=== PATIENT | male | born 1965 | race Caucasian/White ===

== ENCOUNTER 2021-06-04 19:52 | Inpatient (IN) | payer OTHER ==
--- OUTSIDE RECORDS SUMMARY | 2021-06-04 19:23 | XMS REPORT | Continuity of Care Document ---
:1965 Author Organization [facility] t Address [address] [place] [address] Care Team Providers Name Role Phone Danijazzmine_Radu Attending Clinician Unavailable Ckel_T Admitting Clinician Unavailable Payers Payer Name Policy Type Policy Number Effective Date Expiration Date [facility] [id number] Problems Condition Condition Condition Status Onset Resolution Last Treating Co mments Source Name Details Category Date Date Treatment Clinician Date Disorder Disorder Problem Active [facility] of of 9-16 Family endocrine Endocrine 00:00: Prac tic system System 00 e Paresthesi Paresthesi Problem Active [facility] a a 9-15 Family 00:00: Practic 00 e Type 2 Type 2 Problem Active [facility] diabetes Diabetes 915 Family mellitus Mellitus 00:00: Practi c without without 00 e complicati Complicati on on Hypogonadi Hypogonadi Problem Active [facility] sm sm 9-15 Family 00:00: Practic 00 e Hyperlipid Hyperlipid Problem Active [facility] emia emia 9-15 Family 00:00: Practic 00 e Tingling Tingling Problem Active [facility] of skin of Skin 3-12 Family 00:00: Practic 00 e Clinical Clinical Problem Active [facility] finding Finding 3-12 Family 00:00: Practic 00 e Ingrowing Ingrowing Problem Active Susy cash nail Nail 3-12 Family 00:00: Practic 00 e Clinical Clinical Problem Active [facility] finding Finding 8-01 Family 00:00: Practic 00 e Elevated Elevated Problem Active [facility] blood-pres Blood-pres 4-12 Fa leticia sure sure 00:00: Practic reading Reading 00 e without without diagnosis Diagnosis of of hypertensi Hypertensi on on General General Problem Active [facility] finding of Finding of 4-12 Fa leticia observatio Observatio 00:00: Pr actic n of n of 00 e patient Patient Polyp of Polyp of Problem Active [facility] colon Colon Family Practic e Allergies, Adverse Reactions, Alerts This patient has no known allergies or adverse reactions. Social History Smoking Status Start Date Stop Date Source Never Smoker [facility] Medications Ordered Filled Start Stop Current Ordering Indication Dosage Frequency Signature Comments Components Source Medication Medication Date Date Medication? Clinician (SIG) Name Name Barry CerdaStyle No FreeStyle [facility] Lancets Lancets Lancets Family insert insert insert Practic twice daily twice daily twice e daily FreeStyle FreeStyle No 1strip( [facility] Stri[facility] s) Lite F amily Take 1 Take 1 Strips Practic strip twice strip twice Take 1 e a day by a day by strip miscell. miscell. twice a route. route. day by miscell. route. gatifloxaci gatifloxaci No gatifloxac [facility] n 0.5 % eye n 0.5 % eye in 0.5 % Family drops drops eye drops Practic e gemfibrozil gemfibrozil No gemfibrozi [facility] 600 mg 600 mg l 600 mg Family tablet Take tablet Take tablet Practic 1 tablet 1 tablet Take 1 e twice a day twice a day tablet by oral by oral twice a route. route. day by oral route. lisinopril [facility] 10 mg 10 mg 10 mg Family tablet Take tablet Take tablet Practic 1 tablet 1 tablet Take 1 e every day every day tablet by oral by oral every day route. route. by oral route. lisinopril lisinopril [facility] 20 mg 20 mg 20 mg Family tablet tablet tablet Practic e methylpredn methylpredn No methylpred [facility] isolone 4 isolone 4 nisolone 4 Family mg tablets mg tablets mg tablets Practic in a dose in a dose in a dose e pack pack pack pioglitazon pioglitazon No 1 Q1D pioglitazo [facility] 15 mg e 15 mg ne 15 mg Famil y tablet Take tablet Take tablet Practic 1 tablet 1 tablet Take 1 e every day every day tablet by oral by oral every day route for route for by oral 90 days. 90 days. route for 90 days. prednisolon prednisolon No prednisolo [facility] e acetate 1 e acetate 1 ne acetate Family % eye % eye 1 % eye Practic drops,suspe drops,suspe drops,susp e nsion nsion ension rosuvastati rosuvastati No rosuvastat [facility] n 10 mg n 10 mg in 10 mg Famil y tablet tablet tablet Practic e Synjardy XR Synjardy XR No 2 Q1D Synjardy [facility] 12.5 12.5 XR 12.5 Family mg-1,000 mg mg-1,000 mg mg-1,000 Practic tablet, tablet, mg tablet, e extended extended extended release release release Take 2 Take 2 Take 2 tablets tablets tablets every day every day every day by oral by oral by oral route in route in route in the morning the morning the for 90 for 90 morning days. days. for 90 days. testosteron testosteron No testostero [facility] cypionate e cypionate ne F amily 200 mg/mL 200 mg/mL cypionate Practic intramuscul intramuscul 200 mg/mL e ar oil ar oil intramuscu INJECT 1 INJECT 1 lar oil MILLILITER MILLILITER INJECT 1 INTRAMUSCUL INTRAMUSCUL MILLILITER MERVAT ONCE MERVAT ONCE INTRAMUSCU EVERY 2 EVERY 2 LARLY ONCE WEEKS WEEKS EVERY 2 WEEKS tizanidine tizanidine No tizanidine [facility] 4 mg tablet 4 mg tablet 4 mg F amily tablet Practic e Trulicity 3 Trulicity 3 No 3[facility] mg/0.5 mL 3 mg/0.5 F amily subcutaneou subcutaneou mL P ractic s pen s pen subcutaneo e injector injector us pen Inject 3 mg Inject 3 mg injector every week every week Inject 3 by by mg every subcutaneou subcutaneou week by s route as s route as subcutaneo directed directed us route for 30 for 30 as days. days. directed for 30 days. Vital Signs Vital Name Observation Time Observation Value Comments Source Height 2020-08-28 00:00:00 73 [in_i] [facility] BMI (Body Mass 2020-08-28 00:00:00 30.1 kg/m2 [facility] Family Index) Practice Body Weight 2020-08-28 00:00:00 228 [lb_av] [facility] Procedures Procedure Date / Time Performed Performing Clinician Sourc e Colonoscopy 2017-06-30 00:00:00 [facility] Fami ly Practice Operative Procedure on Robin Leon amilrodo Knee Practice Plan of Care Planned Activity Planned Date Details Comments Source Diagnostic Test 2020-08-28 glucose, fingerstick, Susy Lipscomb Pending 00:00:00 blood [code = Practice glucose, fingerstick, blood] Diagnostic Test 2020-08-28 hemoglobin A1C, Robin agosto Pending 00:00:00 fingerstick [code = Practice hemoglobin A1C, fingerstick] Encounters Start End Encounter Admission Attending Care Care Encounter Source Date/Time Date/Time Type Type Clinicians Facility Department ID 2020-08-30 2020-08-30 Outpatient Daniel_T VFP VFP [id number] [facility] 09:06:00 09:06:00 [id number] Family Practic e 2020-08-28 2020-08-28 Outpatient Daniel_T VFP VFP [id number] [facility] 04:40:00 04:40:00 [id number] Family Practic e 2020-08-28 2020-08-28 [place] VFP [place] - [id number] [facility] 00:00:00 00:00:00 [facility] Practi lanette CERVANTES: [id number] VM_BECCA_Dante pan [facility], [address], [place] [address] , Ph. 2020-08-24 2020-08-24 Outpatient Daniel_T VFP VFP [id number] -[id number] [facility] 04:18:00 04:18:00 [id number] Family Practic e Results This patient has no known results.
[2021-06-04] MEDS ORDERED: MORPHINE 4 MG/ML SYR ONE (20:25)
[2021-06-04] MEDS ORDERED: ONDANSETRON 4 MG/2 ML VIAL ONE (20:25)
[2021-06-04] MEDS ORDERED: LIDOCAINE 1% MPF 5 ML VIAL ONE (20:26)
[2021-06-04] MEDS ORDERED: NA CHLORIDE 0.9% 2,000 ML ONE (20:26)
[2021-06-04 20:37] LABS: Absolute Lymphocytes (CBC) 1.6 K/uL (0.7-4.9); Basophils % 0.8 % (0-1.3); Hematocrit 47.6 % (39.6-49.0); Lymphocytes % 17.7 % (15.3-44.8); MPV 8.3 fL (7.6-11.3); RBC Red Blood Cell Count 4.84 M/uL (4.33-5.43)
[2021-06-04 20:46] LABS: ALT/SGPT 40 U/L (12-78); AST/SGOT 14 U/L (15-37); Alkaline Phosphatase 72 U/L (45-117); BUN Blood Urea Nitrogen 10 mg/dL (7-18); Bicarbonate 24 mmol/L (21-32); Bilirubin Direct 0.3 mg/dL (0-0.2); Bilirubin Total 0.9 mg/dL (0.2-1.0); Glucose Level 248 mg/dL (74-106); Potassium 3.9 mmol/L (3.5-5.1); Protein, Total 8.1 g/dL (6.4-8.2); Sodium Level 137 mmol/L (136-145)
--- NOTE | 2021-06-04 20:50 | RAD REPORT ---
EXAM DESCRIPTION: RAD - Knee Right 3 View - 06/04/2021 8:43 pm CLINICAL HISTORY: R/O septic knee;Pain COMPARISON: Chest Single View dated 06/01/2021; Chest Pa And Lat (2 Views) dated 02/06/2021; Chest Sin gle View dated 01/17/2021; Chest Single View dated 11/22/2020No comparisons FINDINGS: No acute fracture. No malalignment. Moderate medial compartment narrowing with spurring pr esent. Small knee effusion. Soft tissue swelling ventrally along the knee. IMPRESSION: No acute osseous abnormality involving the right knee. Small knee effusion.
[2021-06-04] MEDS ORDERED: VANCOMYCIN 1 GM/VIAL ONE (21:08)
[2021-06-04] MEDS ORDERED: PIPERACIL/TAZO 3.375 GM VIAL IV ONE (21:09)
[2021-06-04] MEDS ORDERED: NA CHLORIDE 0.9% 250 ML ONE (21:10)
[2021-06-04] MEDS ORDERED: NA CHLORIDE 0.9% 100 ML ONE (21:10)
--- NOTE | 2021-06-04 21:46 | ER ---
Nurse's Notes [facility] Name: Scot Norton Age: 56 yrs Sex: Male : 1965 Arrival Date: 06/04/2021 Time: 19:53 Bed 18 Private MD: Jessica Rothman C Diagnosis: Cellulitis / Laceration right knee Presentation: 06/04 20:08 Chief complaint: Patient states: Pt sent to ED by Dr Rothman. On Friday pt was out hunting vg1 and a boar attacked pt and tusk lacerated Right knee. Right knee appears to be swollen, red and warm to touch. Coronavirus screen: Vaccine status: Patient reports being unvaccinated. Client denies travel out of the [place] in the last 14 days. Ebola Screen: Patient negative for fever greater than or equal to 101.5 degrees Fahrenheit, and additional compatible Ebola Virus Disease symptoms. Initial Sepsis Screen: Does the patient meet any 2 criteria? No. Patient's initial sepsis screen is negative. Does the patient have a suspected source of infection? No. Patient's initial sepsis screen is negative. Risk Assessment: Do you want to hurt yourself or someone else? Patient reports no desire to harm self or others. Onset of symptoms was June 01, 2021. 20:08 Method Of Arrival: Ambulatory vg1 20:08 Acuity: MAYRA 3 vg1 Triage Assessment: 20:11 General: Appears in no apparent distress. comfortable, Behavior is calm, cooperative. vg1 Pain: Complains of pain in right knee Pain currently is 0 out of 10 on a pain scale. at worst was 8 out of 10 on a pain scale. Derm:. Musculoskeletal: Swelling present in right knee. Historical: - Allergies: 20:11 No Known Allergies; vg1 - Home Meds: 20:11 Metformin Oral [Active]; rosuvastatin oral [Active]; Trulicity [Active]; Lisinopril vg1 Oral [Active]; - PMHx: 20:11 Diabetes mellitus; Hypercholesterolemia; vg1 - PSHx: 20:11 Knee-Right; Knee-Left; vg1 - Immunization history:: Client reports having NOT received the Covid vaccine. - Social history:: Smoking status: Patient reports the use of cigarette tobacco products, smokes two packs cigarettes per day. Screenin:40 Abuse screen: Denies threats or abuse. Denies injuries from another. Nutritional jh5 screening: No deficits noted. Tuberculosis screening: No symptoms or risk factors identified. Fall Risk None identified. Assessment: 21:39 General: Appears in no apparent distress. Behavior is calm, cooperative. Neuro: Level jh5 of Consciousness is awake, alert, obeys commands, Oriented to person, place, time, situation, Appropriate for age Speech is normal. Respiratory: No deficits noted. Airway is patent Trachea midline Respiratory effort is even, unlabored, Respiratory pattern is regular. Vital Signs: 20:08 BP 140 / 71; Pulse 93; Resp 16; Temp 98.2(O); Pulse Ox 99% ; Weight 104.33 kg; Height 6 vg1 ft. 2 in. (187.96 cm); Pain 8/10; 21:42 BP 135 / 68; Pulse 84; Resp 16; Pulse Ox 100% ; jh5 20:08 Body Mass Index 29.53 (104.33 kg, 187.96 cm) vg1 ED Course: 19:53 Patient arrived in ED. as 19:54 Jessica Rothman MD is Private Physician. as 19:55 Ancelmo Marcano MD is Attending Physician. pkl 20:11 Triage completed. vg1 20:11 Arm band placed on. vg1 20:24 Sheyla Ward, NANCY is Primary Nurse. jh5 20:43 Knee Right 3 View XRAY In Process Unspecified. EDMS 21:40 Patient has correct armband on for positive identification. Bed in low position. Call jh5 light in reach. Side rails up X 1. 21:41 No provider procedures requiring assistance completed. Inserted saline lock: 18 gauge jh5 in right antecubital area, using aseptic technique. 21:44 Jessica Rothman MD is Hospitalizing Provider. pkl 23:12 Patient admitted, IV remains in place. as6 Administered Medications: 20:29 Drug: NS 0.9% 1000 ml Route: IV; Rate: 1000 ml; Site: right antecubital; jh5 20:29 Drug: NS 0.9% 1000 ml Route: IV; Rate: 125 ml/hr; Site: right antecubital; jh5 21:01 Drug: morphine 4 mg Route: IVP; Site: right antecubital; jh5 21:01 Drug: Zofran (Ondansetron) 4 mg Route: IVP; Site: right antecubital; 5 21:23 Drug: Zosyn (piperacillin-tazobactam) 3.375 grams Route: IVPB; Infused Over: 60 mins; [facility] Site: left antecubital; 22:26 Drug: vancoMYCIN 1 grams Route: IVPB; Infused Over: 2 hrs; Site: left antecubital; 5 Outcome: 21:45 Decision to Hospitalize by Provider. pkneymar 23:11 Admitted to Med/surg accompanied by nurse, family with patient, via wheelchair, room as6 215, with chart, Report called to rey carrion 23:11 Condition: stable 23:12 Admitted to Med/surg accompanied by nurse, via wheelchair, room 215, with chart, Report ld1 called to NANCY Meneses 23:12 Condition: stable 23:12 Instructed on the need for admit. 23:12 Patient left the ED. as6 Signatures: Dispatcher [employer] EDMS Ancelmo Marcano MD MD pkl Martinez, Amelia as Garcia, Victoria RN RN vg1 Rebekah Benson RN RN ld1 Sheyla Ward RN RN jh5 Eliceo Magallon, NANCY RN as6
--- NOTE | 2021-06-04 21:46 | EDPHYS ---
Physician Documentation [facility] Name: Scot Norton Age: 56 yrs Sex: Male : 1965 Arrival Date: 06/04/2021 Time: 19:53 Bed 18 Private MD: Jessica Rothman C ED Physician Ancelmo Marcano HPI: 06/04 20:08 This 56 yrs old Male presents to ER via Unassigned with complaints of r leg cellulitis pkl r/o r knee septic arthritis. 20:08 The patient presents with an injury, pain, that is acute, swelling, tenderness. The pkl complaints affect the right knee. Context: resulted from Bitten by wild boar. Onset: The symptoms/episode began/occurred 3 day(s) ago. Historical: - Allergies: 20:11 No Known Allergies; vg1 - Home Meds: 20:11 Metformin Oral [Active]; rosuvastatin oral [Active]; Trulicity [Active]; Lisinopril vg1 Oral [Active]; - PMHx: 20:11 Diabetes mellitus; Hypercholesterolemia; vg1 - PSHx: 20:11 Knee-Right; Knee-Left; vg1 - Immunization history:: Client reports having NOT received the Covid vaccine. - Social history:: Smoking status: Patient reports the use of cigarette tobacco products, smokes two packs cigarettes per day. ROS: 20:08 Eyes: Negative for injury, pain, redness, and discharge, ENT: Negative for injury, pkl pain, and discharge, Neck: Negative for injury, pain, and swelling, Cardiovascular: Negative for chest pain, palpitations, and edema, Respiratory: Negative for shortness of breath, cough, wheezing, and pleuritic chest pain, Abdomen/GI: Negative for abdominal pain, nausea, vomiting, diarrhea, and constipation, Back: Negative for injury and pain, : Negative for injury, bleeding, discharge, and swelling. 20:08 MS/extremity: Positive for erythema, laceration, pain, swelling, tenderness, warmth, of the right knee. 20:08 Skin: Positive for cellulitis, erythema, swelling, of the right knee. 20:08 Neuro: Negative for altered mental status, loss of consciousness. Exam: 20:08 Head/Face: Normocephalic, atraumatic. Eyes: Pupils equal round and reactive to light, pkl extra-ocular motions intact. Lids and lashes normal. Conjunctiva and sclera are non-icteric and not injected. Cornea within normal limits. Periorbital areas with no swelling, redness, or edema. ENT: Nares patent. No nasal discharge, no septal abnormalities noted. Tympanic membranes are normal and external auditory canals are clear. Oropharynx with no redness, swelling, or masses, exudates, or evidence of obstruction, uvula midline. Mucous membranes moist. Neck: Trachea midline, no thyromegaly or masses palpated, and no cervical lymphadenopathy. Supple, full range of motion without nuchal rigidity, or vertebral point tenderness. No Meningismus. Chest/axilla: Normal chest wall appearance and motion. Nontender with no deformity. No lesions are appreciated. Cardiovascular: Regular rate and rhythm with a normal S1 and S2. No gallops, murmurs, or rubs. Normal PMI, no JVD. No pulse deficits. Respiratory: Lungs have equal breath sounds bilaterally, clear to auscultation and percussion. No rales, rhonchi or wheezes noted. No increased work of breathing, no retractions or nasal flaring. Abdomen/GI: Soft, non-tender, with normal bowel sounds. No distension or tympany. No guarding or rebound. No evidence of tenderness throughout. Back: No spinal tenderness. No costovertebral tenderness. Full range of motion. 20:08 Musculoskeletal/extremity: Extremities: grossly normal except: noted in the right knee: erythema, laceration, pain, swelling, tenderness, Laceration 4 cm anterior aspect right knee. 20:08 Skin: cellulitis, that is moderate, on the right knee. 20:08 Neuro: Orientation: is normal, Mentation: is normal, Cranial nerves: grossly normal, Motor: is normal. Vital Signs: 20:08 BP 140 / 71; Pulse 93; Resp 16; Temp 98.2(O); Pulse Ox 99% ; Weight 104.33 kg; Height 6 vg1 ft. 2 in. (187.96 cm); Pain 8/10; 21:42 BP 135 / 68; Pulse 84; Resp 16; Pulse Ox 100% ; jh5 20:08 Body Mass Index 29.53 (104.33 kg, 187.96 cm) vg1 Procedures: 20:58 Aspiration right knee joint done under sterile condition. small amount bloody fluid pkl obtained. Specimen sent for cell count, gram stain and C/S. MDM: 19:55 Patient medically screened. pkl 21:36 Data reviewed: vital signs, nurses notes, lab test result(s). ED course: Notified Dr. erika Zurita and Dr. Rothman of synovial fluid right knee result. 06/04 20:05 Order name: CBC with Diff pkl 06/04 20:05 Order name: Chem 7; Complete Time: 20:56 pkl 06/04 20:05 Order name: LFT's; Complete Time: 20:56 pkl 06/04 20:05 Order name: Sed Rate; Complete Time: 20:56 pkl 06/04 20:05 Order name: CRP; Complete Time: 20:56 pkl 06/04 20:05 Order name: Blood Culture Adult (2) pkl 06/04 20:06 Order name: CBC with Automated Diff; Complete Time: 20:56 EDMS 06/04 20:57 Order name: Body Fluid Cell Count; Complete Time: 00:09 EDMS 06/04 20:57 Order name: Body Fluid Culture EDMS 06/04 22:17 Order name: Basic Metabolic Panel EDMS 06/04 22:17 Order name: Basic Metabolic Panel EDMS 06/04 22:17 Order name: CBC with Automated Diff EDMS 06/04 20:07 Order name: Knee Right 3 View XRAY; Complete Time: 20:56 pkl 06/04 20:07 Order name: Urine Dipstick-Ancillary (obtain specimen); Complete Time: 21:23 pkl 06/04 22:17 Order name: 60g Consistent Carbohydrate (ADA 1800/2000) EDMS 06/04 22:17 Order name: CBC with Automated Diff EDMS Administered Medications: 20:29 Drug: NS 0.9% 1000 ml Route: IV; Rate: 1000 ml; Site: right antecubital; jh5 20:29 Drug: NS 0.9% 1000 ml Route: IV; Rate: 125 ml/hr; Site: right antecubital; jh5 21:01 Drug: morphine 4 mg Route: IVP; Site: right antecubital; jh5 21:01 Drug: Zofran (Ondansetron) 4 mg Route: IVP; Site: right antecubital; jh5 21:23 Drug: Zosyn (piperacillin-tazobactam) 3.375 grams Route: IVPB; Infused Over: 60 mins; jh5 Site: left antecubital; 22:26 Drug: vancoMYCIN 1 grams Route: IVPB; Infused Over: 2 hrs; Site: left antecubital; jh5 Disposition Summary: 06/04/21 21:45 Hospitalization Ordered Hospitalization Status: Inpatient Admission pkl Provider: Jessica Rothman pkl Location: Telemetry/MedSurg (Inpatient) pkl Condition: Stable pkl Problem: new pkl Symptoms: are unchanged pkl Bed/Room Type: Standard pkl Room Assignment: 215(06/04/21 22:22) Diagnosis - Cellulitis / Laceration right knee pkl Forms: - Medication Reconciliation Form pkl - SBAR form pkl Signatures: Dispatcher [employer] EDMS Ancelmo Marcano MD MD pkl Sultana Schroeder RN RN Stephenie Warner RN RN vg1 Sheyla Ward RN RN jh5 Corrections: (The following items were deleted from the chart) 20:06 20:06 HEMOGLOBIN A1C+CHEM A1C.LAB.BRZ ordered. EDMS EDMS 20:57 20:57 Gram Stain ordered. EDMS EDMS 22:22 21:45 pkl cg
[2021-06-04 22:00] LABS: Appearance ND (CLEAR); Body Fluid WBC ND /mm^3; Color of fluid ND (COLORLESS)
[2021-06-04 22:01] LABS: Body Fluid Source SYNOVIAL
[2021-06-04] MEDS ORDERED: GLUCAGON 1 MG/VIAL IM PRN (22:14)
[2021-06-04] MEDS ORDERED: D50W 25 GM/50 ML SYRINGE IV PRN (22:14)
[2021-06-04] MEDS ORDERED: PIPER TAZO 3.375 GM in NA CHLORIDE 0.9% 100 ML IV ONE (22:30)
[2021-06-04] MEDS: VANCOMYCIN 1 GM in NA CHLORIDE 0.9% 250 ML IVPB SCH (23:00)
[2021-06-04] MEDS ORDERED: NA CHLORIDE 0.9% 1,000 ML IV SCH (23:00)
[2021-06-04 23:17] VITALS: BMI 29.9
[2021-06-04] MEDS: INSULIN -REGULAR HUMAN 50 UNIT/0.5 ML ML SQ SCH (23:31)
[2021-06-05] MEDS ORDERED: ONDANSETRON 4 MG/2 ML VIAL IV PRN (02:14)
[2021-06-05] MEDS: MORPHINE 4 MG/ML SYR IV PRN ×3 (02:34→21:35)
[2021-06-05 04:37] LABS: Absolute Lymphocytes (CBC) 1.4 K/uL (0.7-4.9); Basophils % 0.6 % (0-1.3); Lymphocytes % 20.2 % (15.3-44.8); MPV 8.2 fL (7.6-11.3); RBC Red Blood Cell Count 4.22 M/uL (4.33-5.43)
[2021-06-05 04:42] LABS: BUN Blood Urea Nitrogen 9 mg/dL (7-18); Bicarbonate 23 mmol/L (21-32); Glucose Level 166 mg/dL (74-106); Potassium 3.9 mmol/L (3.5-5.1); Sodium Level 141 mmol/L (136-145)
[2021-06-05] MEDS ORDERED: PIPER TAZO 3.375 GM in NA CHLORIDE 0.9% 100 ML IV SCH (06:00)
--- NOTE | 2021-06-05 06:58 | HP ---
Date of Admission: 06/04/2021 Chief Complaint: Right knee pain and swelling. History Of Present Illness: This is a 56-year-old male patient who was hunting in the [facility] last week on Friday, so that is about 3 days ago, and he shot a wild pig and after about 45 minutes or so when he checked on him, pig was actually not and pig started attacking him and ended up hurting him with his tusk on his right leg. The patient sustained a large laceration to right anterior knee as he describes while he was fighting the pig. He did not seek any medical attention until he decided to come see me today with his pain and swelling of the right knee with some redness of the right knee area. He denies any fever, chills, nausea, vomiting. After he was evaluated, decision was made to send him to the hospital for further evaluation and management of this problem. Our original decision was to directly admit him, but after communicating with Dr. Zurita, who was requested to also help consult on the patient. After discussion with him, the patient was directed to come to emergency room. I did communicate with the ER physician about all the details and after the patient arrived in the ER, he did have an arthrocentesis done along with other routine blood work and his arthrocentesis did not show any organisms. Cell count was ordered on the synovial fluid, but lab for some reason was not able to perform that and that reason is not clear to us, but it appears that very likely they are not doing this particular test in the lab anymore. The patient was admitted to the hospital after this. Allergies: NO KNOWN ALLERGIES. Review of Systems: Musculoskeletal: As mentioned above. All other systems reviewed and negative. Past Medical History: Significant for hypertension, mixed hyperlipidemia; type 2 diabetes mellitus, not well controlled; testicular hypofunction. Past Surgical History: Arthroscopic knee surgery. Family History: Father has diabetes and brother has leukemia. Social History: Positive for smoking. Use of alcohol. He has about 2 drinks on a daily basis. Medications: Aspirin 81 mg daily, albuterol inhaler 2 puffs 4 times a day as needed, Jardiance 25 mg daily, pioglitazone 15 mg p.o. daily, metformin 1000 mg 2 times a day, gemfibrozil 600 mg 2 times a day, rosuvastatin 10 mg daily in the evening, lisinopril 20 mg daily, and he takes testosterone 200 mg every 2 weeks. Physical Examination: Vital Signs: When he came into ER, temperature was 98.2, pulse 93, respiratory rate 16, blood pressure 140/71, oxygen saturation 99%, height 6 feet 2 inches, weight 233 pounds. General: Awake, alert, oriented, not in distress. HEENT: Head atraumatic, normocephalic. Conjunctivae nonerythematous. Sclerae white. Mouth, no thrush or edema noted. Ears/Nose, no mass, lesion, discharge noted. Neck: Supple. No JVD, lymph nodes, bruit, thyromegaly noted. Lungs: Bilateral good equal air entry. Clear to auscultation. No rhonchi. No rales. Heart: Normal heart sounds, no murmur or gallop. Abdomen: Soft, bowel sounds normal. No guarding, rigidity, tenderness, mass, hepatosplenomegaly, distention, or bruit noted. Extremities: No leg edema. No calf tenderness. Skin: No rash, ulcer, cellulitis. Lymphatics: No lymph node enlargement in neck, supraclavicular, infraclavicular region. Neuro: No focal neurological deficit. Chest: Unremarkable. External Genitalia: Deferred. Rectal: Deferred. Musculoskeletal: Right knee has mild swelling of the right knee with skin overlying the right knee is slightly erythematous, warm to touch and range of motion of right knee is painful. Right anterior knee has approximately 6 cm laceration. No discharge or bleeding. Laboratory Data: White count 9.3, hemoglobin 15.8, platelets 181. Sodium 137, potassium 3.9, chloride 103, bicarb 24, BUN 10, creatinine 0.68, glucose 248. Liver function tests unremarkable. CRP 90.40. COVID-19 test negative synovial fluid Gram-stain, 0-5 WBC, but no organisms seen. Impression: 1. Cellulitis, right leg. 2. Type 2 diabetes mellitus, uncontrolled. 3. Hypertension. 4. Mixed hyperlipidemia. 5. Testicular hypofunction. Plan: Admit the patient to hospital for further evaluation and management of this problem. The patient is appropriate for inpatient and is expected to spend 2 midnights in hospital. We will consult Dr. Zurita from Orthopedic Surgery. Home medications will be continued per order. Diabetes will be managed along with home medications. We will give sliding scale insulin. I will go ahead and give DVT prophylaxis with Lovenox. Vancomycin and Zosyn will be started. We will follow up on blood culture and follow up on synovial fluid culture. Plan of treatment discussed with the patient. TEJAS/ANGELINA Voice ID: [id number] [email or web address]
[2021-06-05] MEDS ORDERED: TETANUS & DIPHTHERIA TOX,ADULT 0.5 ML VIAL IMVAC ONE (07:02)
[2021-06-05] MEDS: INSULIN -REGULAR HUMAN 50 UNIT/0.5 ML ML SQ SCH ×4 (07:30→21:29)
[2021-06-05] MEDS: METFORMIN HCL 500 MG TAB PO SCH ×2 (08:08→17:25)
--- NOTE | 2021-06-05 08:52 | CON ---
Date of Consultation: 06/05/2021 History Of Present Illness: This is my first time seeing this patient to my knowledge. He is a 56-y ear-old male who apparently 5 days ago was hunting. He approached a hog, which he thought he had kil led. Apparently, the hog was still living and tusked his right lower extremity at the anterior man apparently hooking his skin at the anterior aspect of the right knee causing a laceration. He initijohann cervantesy treated this at home and was doing fairly well until yesterday or perhaps the day before, where kari pan started having increasing redness and pain associated with swelling of the right knee. He was seen by his primary care physician, Dr. Rothman, who called me last night and his plan was to directly admit him to the hospital. Decision was made to place him in the emergency department to get x-rays as we ll as an aspiration of his knee. This was performed by the emergency room physician. Emergency room physician called me last night telling me that there was scanty fluid aspirated and that there were no organisms and minimal white cells and x-rays were negative for any fracture or dislocation. I see him this morning. He is sitting relatively comfortably in the bed. He does have an approximately 5 cm diagonal laceration on the anterior knee directly overlying the patellar tendon. He can perform a strong straight leg raise. He does have some mild erythema of the leg. He does have some warmth a s well as swelling of the knee including effusion. However, range of motion of the knee causes essen tially no pain. X-rays are reviewed, which demonstrate no fracture or dislocation. Assessment: This is a 56-year-old male now with apparently fairly late-appearing cellulitic changes as well as swelling of the right knee. Based on his aspiration, his clinical examination and history , I do not feel this is consistent with a septic knee. I did discuss with him that we could perhaps re-aspirate it as there was some fluid there. However, this would be a second injection through prob ably cellulitic skin and we decided that this would cause more risk than benefits as it does not have the clinical appearance of a septic knee nor follow the normal history despite possibly may have had an intra-articular violation of the knee. He says he understands everything is presented. At this time, he will be continued on antibiotics by his primary care physician and be followed clinically. I believe he can be weightbearing as tolerated. /ANGELINA Voice ID: [id number] Report ID: [id number]
[2021-06-05] MEDS ORDERED: gemfibroziL 600 MG TAB PO SCH (09:00)
[2021-06-05] MEDS: ASPIRIN EC 81 MG TAB PO SCH (09:07)
[2021-06-05] MEDS: ENOXAPARIN 40 MG/0.4 ML SQ SCH (09:07)
[2021-06-05] MEDS: lisinopriL 20 MG TAB PO SCH (09:08)
[2021-06-05] MEDS: gemfibroziL 600 MG TAB PO SCH ×2 (09:09→17:25)
[2021-06-05] MEDS: PIOGLITAZONE 15 MG TAB PO SCH (09:09)
[2021-06-05] MEDS: VANCOMYCIN 1 GM in NA CHLORIDE 0.9% 250 ML IVPB SCH (11:00)
[2021-06-05] MEDS ORDERED: VANCOMYCIN 1 GM/VIAL ONE (11:37)
[2021-06-05] MEDS ORDERED: VANCOMYCIN 1.75 GM in NA CHLORIDE 0.9% 500 ML IVPB SCH ×2 (12:00→21:00)
[2021-06-05] MEDS: VANCOMYCIN 1.75 GM in NA CHLORIDE 0.9% 500 ML IVPB SCH ×2 (12:21→21:29)
[2021-06-05] MEDS: PIPER TAZO 3.375 GM in NA CHLORIDE 0.9% 100 ML IV SCH (17:24)
--- NOTE | 2021-06-05 19:57 | PN ---
Date of Progress Note: 06/05/2021 Subjective: The patient was seen this morning for followup, lying in bed, not in any distress. His pain was under much better control after he received morphine. Overnight no new complaints or problems reported by him. Objective: Vital Signs: Reviewed. HEENT: Unremarkable. Lungs: Clear to auscultation. Heart: Sounds normal. Abdomen: Soft. Bowel sounds normal. No guarding, rigidity, tenderness, distention. Extremities: Right leg has trace edema. Right knee examination shows mild swelling of right knee with pink warm skin over the right knee with presence of laceration over the anterior knee. All findings are unchanged from yesterday. Laboratory Data: White count 7.1, hemoglobin 13.6. Sodium 141, potassium 3.9, chloride 109, bicarb 23, BUN 9, creatinine 0.46, glucose 166. Hemoglobin A1c 7.9. Impression: 1. Cellulitis, right leg. 2. Type 2 diabetes mellitus, uncontrolled. 3. Mixed hyperlipidemia. 4. Hypertension. Plan: We will go ahead and continue current medication, continue current antibiotic, which is Zosyn and vancomycin. Pharmacy to manage vancomycin therapy. We will monitor blood cultures. Fingerstick blood sugar with sliding scale will be used for diabetes control along with his home medications. Continue DVT prophylaxis. Dr. uZrita did evaluate him and communicated with me that he does not really have much concern about any septic arthritis problem at this time and it is more like a cellulitis of right leg. I have informed the patient that I would like to keep him in the hospital for IV antibiotics until or Friday, and depending on his condition by that time, we will decide if I can discharge him by that time or not. TEJAS/MODL Voice ID: [id number] Report ID: [id number] REBECA
[2021-06-05] MEDS: ROSUVASTATIN 10 MG TAB PO SCH (21:28)
[2021-06-06] MEDS: PIPER TAZO 3.375 GM in NA CHLORIDE 0.9% 100 ML IV SCH ×3 (01:32→16:42)
[2021-06-06] MEDS: INSULIN -REGULAR HUMAN 50 UNIT/0.5 ML ML SQ SCH ×4 (07:30→20:50)
--- NOTE | 2021-06-06 07:53 | PN ---
Date of Progress Note: 06/06/2021 Subjective: The patient is seen today. He is significantly clinically improved. His erythema has d ecreased. Also, the swelling in his knee is now trace to 1+. He still has full painless range of mo tion of his knee. Assessment: At this time he appears to be doing extremely well with response to the antibiotics by h is primary physician and has made remarkable improvements. I do not think there is really any sign o f need for operative intervention. I think we can see him in followup as needed; however, most likel y the primary care physician can continue to see him and would let us know if there was any trouble t hat we would need to see him again. /ANGELINA Voice ID: [id number] Report ID: [id number]
[2021-06-06] MEDS ORDERED: NA CHLORIDE 0.9% 0 ML ONE (07:58)
[2021-06-06] MEDS: gemfibroziL 600 MG TAB PO SCH ×2 (08:24→16:44)
[2021-06-06] MEDS: METFORMIN HCL 500 MG TAB PO SCH ×2 (08:24→17:46)
[2021-06-06] MEDS: PIOGLITAZONE 15 MG TAB PO SCH (08:24)
[2021-06-06] MEDS: VANCOMYCIN 1.75 GM in NA CHLORIDE 0.9% 500 ML IVPB SCH ×2 (09:23→20:52)
[2021-06-06] MEDS: ENOXAPARIN 40 MG/0.4 ML SQ SCH (09:23)
[2021-06-06] MEDS: ASPIRIN EC 81 MG TAB PO SCH (09:24)
[2021-06-06] MEDS: lisinopriL 20 MG TAB PO SCH (09:25)
--- NOTE | 2021-06-06 19:56 | PN ---
Date of Progress Note: 06/06/2021 Subjective: The patient was seen this morning for followup. No new complaints or problems reported. Lying in bed, not in any distress. Easily arousable. Overall, he feels a lot better this morning. Slept very well last night. No new complaints or problems reported. Objective: Vital Signs: Reviewed. HEENT: Examination unremarkable. Lungs: Clear to auscultation. Heart: Sounds normal. Abdomen: Soft. Bowel sounds normal. No guarding, rigidity, tenderness, distention. Extremities: Right leg exam shows improvement in right knee swelling and right leg swelling overall much better today than yesterday. Laceration from right anterior knee. Does not have any drainage, discharge or bleeding. Laboratory Data: One bottle out of 4 bottles of the blood culture shows some bacterial growth. Corbin novak identification and sensitivity result pending. Impression: 1.Cellulitis, right leg. 2.Hypertension. 3.Diabetes mellitus, uncontrolled. 4.Hyperlipidemia. Plan: We will continue current medication. Patient's positive blood culture, it probably will last turner to be skin contaminant. We will definitely wait until we get the final report back. Meanwhile, continue current antibiotic. The patient is responding very well and I will see him tomorrow for fol lowup. Depending on his condition and culture results, we will decide if we can discharge him to go home tomorrow with appropriate oral antibiotics or not. Details were discussed with the patient. Continu e current DVT prophylaxis. TEJAS/MODL Voice ID: [id number] Report ID: [id number]
[2021-06-06] MEDS: ROSUVASTATIN 10 MG TAB PO SCH (20:50)
[2021-06-06] MEDS: MORPHINE 4 MG/ML SYR IV PRN (20:51)
[2021-06-07] MEDS: PIPER TAZO 3.375 GM in NA CHLORIDE 0.9% 100 ML IV SCH (00:51)
[2021-06-07 05:31] VITALS: BP 154/67; TEMP 97.9
[2021-06-07 06:05] LABS: Absolute Lymphocytes (CBC) 1.2 K/uL (0.7-4.9); Basophils % 0.7 % (0-1.3); Hematocrit 40.3 % (39.6-49.0); Lymphocytes % 21.3 % (15.3-44.8); RBC Red Blood Cell Count 4.14 M/uL (4.33-5.43)
[2021-06-07 06:16] LABS: BUN Blood Urea Nitrogen 12 mg/dL (7-18); Bicarbonate 24 mmol/L (21-32); Glucose Level 193 mg/dL (74-106); Magnesium 1.9 mg/dL (1.8-2.4); Sodium Level 141 mmol/L (136-145)
[2021-06-07 06:28] VITALS: O2SAT 95
--- NOTE | 2021-06-08 07:46 | DS ---
Date of Discharge: 06/07/2021 Disposition: Discharged to go home. Physical Examination: HEENT: Unremarkable. Lungs: Clear to auscultation. Heart: Sounds normal. Abdomen: Soft. Bowel sounds normal. No guarding, rigidity, tenderness, distention. Extremities: No leg edema. Right knee examination is significantly what it was when he first came t o the hospital. His right knee swelling has almost completely resolved. Redness of the skin and war mness of the skin from the right knee also has almost completely resolved. He does have superficial laceration over right anterior knee, which is healing very well. There is no sign of any gapping, di scharge, or bleeding. Laboratory Data: Upon admission, white count 9.1, hemoglobin 15.8, platelets 181. Today, white coun t 5.7, hemoglobin 13.5, platelets 177. Today, chemistry; sodium 141, potassium 4, chloride 111, bica rb 24, BUN 12, creatinine 0.51, glucose 193, magnesium 1.9. His hemoglobin A1c was 7.9 during this a dmission. Liver function tests were unremarkable. CRP upon admission was 90.40. Hospital Course: This is a 56-year-old male patient who came into office with complaints of right kn ee pain and swelling and after he was evaluated, he came to the emergency room and after further eval uation in the emergency room, he was admitted to the hospital. Please see dictated H and P for more information. The patient was admitted to the hospital with right leg cellulitis involving the area o f the right knee. We were concerned about the possibility of septic arthritis in the beginning and t he patient had arthrocentesis done in the emergency room and hospital lab was not able to perform nora l count, although sinoatrial fluid, but Gram stain was negative for any organism. So far sinoatrial fluid culture has remained negative. Dr. Zurita was consulted from [facility]opedic [facility], and he did not have concern about septic arthritis. The patient was started on vancomycin and Zosyn, and he re sponded very well to these medications. His pain, swelling, redness from right knee area has improve d significantly. Blood culture was collected when he came into emergency room. One bottle out of 4 bottles is growing gram-positive coccobacilli. I suspect this is likely going to be skin contaminant . Considering the patient feeling very well, he does not want to stay in the hospital until we get t he final report back, which I understand and he understands that if his condition changes, obviously he will need to communicate with me, but otherwise he is medically stable for discharge. We will fol low up on his culture results. Final Diagnoses: 1.Cellulitis, right leg. 2.Type 2 diabetes mellitus, uncontrolled. 3.Hypertension. 4.Mixed hyperlipidemia. 5.Testicular hypofunction. Discharge Medications: Continue prior home medications. Take following antibiotics as prescribed: 1.Augmentin 875 mg 2 times a day for 10 days. 2.Doxycycline 100 mg 2 times a day for 10 days. Follow up at our office next week on Friday, which is 06/11/2021 at 1 p.m. TEJAS/YOUNGL Voice ID: [id number] Report ID: [id number]
== END 2021-06-07 08:15 | disposition home or self-care (01) | DRG 603 ==
LOC: ER 19:52 → EDSTATUS 19:52 → ERHOLD 22:21 → 2ND 22:36
PROVIDERS: ADMIT Internal Medicine; ATTEND Internal Medicine
PROC: 0S9C3ZZ Drainage of Right Knee Joint, Percutaneous Approach (ICD-10-PCS; principal; 2021-06-04)
DX: L03.115 Cellulitis of right lower limb (principal); I10 Essential (primary) hypertension; E29.1 Testicular hypofunction; E78.2 Mixed hyperlipidemia; E11.9 Type 2 diabetes mellitus without complications; F17.210 Nicotine dependence, cigarettes, uncomplicated; S81.011A Laceration without foreign body, right knee, initial encounter; W55.42XA Struck by pig, initial encounter; Y93.89 Activity, other specified; Z79.84 Long term (current) use of oral hypoglycemic drugs; Z20.822 Contact with and (suspected) exposure to COVID-19; Z79.82 Long term (current) use of aspirin; Z79.899 Other long term (current) drug therapy
CPT/HCPCS: 36415; 80048; 80076; 80202; 82947; 83036; 83735; 85025; 85652; 86140; 87040; 87070; 87077; 87186; 87205; 89050; 90471; 90714; 99285; J1650; J2405; J2543; J3370; J7030; J7040; J7050; U0003